=== PATIENT | female | born 1980 | race Caucasian/White ===

== ENCOUNTER 2016-03-15 14:38 | Emergency (ER) | payer SELFPAY ==
--- NOTE | 2016-03-15 15:03 | ER Document Report ---
ED Medical Screen (RME) - General Stated Complaint: SUICIDAL IDEATION,ALCOHOL DETOX Time seen by provider: 15:00 Mode of Arrival: Ambulatory Information source: Patient Notes: 35-year-old daily alcoholic for 20 years is having thoughts of suicide due to depression. She feels shaky and will go into DTs she states. Also she occasionally uses IV heroin, last IV injection was 2 weeks ago. Last alcohol consumption was last night. TRAVEL OUTSIDE OF THE [place] IN LAST 30 DAYS: No - Related Data Allergies/Adverse Reactions: No Known Allergies Allergy (Verified 03/15/16 14:59) Past Medical History - Immunizations Hx Diphtheria, Pertussis, Tetanus Vaccination: Yes Physical Exam - Vital signs Vitals: Temp Pulse Resp BP Pulse Ox 98.0 F 77 16 115/64 96 03/15/16 14:56 03/15/16 14:56 03/15/16 14:56 03/15/16 14:56 03/15/16 14:56 Course - Vital Signs Vital signs: Temp Pulse Resp BP Pulse Ox 98.0 F 77 16 115/64 96 03/15/16 14:56 03/15/16 14:56 03/15/16 14:56 03/15/16 14:56 03/15/16 14:56
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
[2016-03-15 15:42] LABS: ABSOLUTE BASOPHILS # (AUTO) 0.1 10^3/uL (0.0-0.2); ABSOLUTE EOSINOPHILS # (AUTO) 0.1 10^3/uL (0.0-0.6); ABSOLUTE LYMPHOCYTES (AUTO) 3.1 10^3/uL (0.5-4.7); BASOPHILS % (AUTO) 0.7 % (0-2); EOSINOPHILS % (AUTO) 0.8 % (0-6); HEMATOCRIT 46.4 % (36.0-47.0); HEMOGLOBIN 15.7 g/dL (12.0-15.5); HGB HCT DIFFERENCE 0.7; LYMPHOCYTES % (AUTO) 18.8 % (13-45); MEAN CORPUSCULAR HEMOGLOBIN 31.2 pg (27.0-33.4); MEAN CORPUSCULAR HGB CONC 33.7 g/dL (32.0-36.0); MEAN CORPUSCULAR VOLUME 93 fl (80-97); MONOCYTES % (AUTO) 6.1 % (3-13); RED BLOOD COUNT 5.01 10^6/uL (3.72-5.28); RED CELL DISTRIBUTION WIDTH 13.4 % (11.5-14.0); SEGMENTED NEUTROPHILS % (AUTO) 73.6 % (42-78); WHITE BLOOD COUNT 16.3 10^3/uL (4.0-10.5)
[2016-03-15 16:02] LABS: ALANINE AMINOTRANSFERASE 22 U/L (9-52); ALBUMIN 4.4 g/dL (3.5-5.0); ALKALINE PHOSPHATASE 107 U/L (38-126); ANION GAP 12 (5-19); ASPARTATE AMINO TRANSFERASE 18 U/L (14-36); BILIRUBIN,TOTAL 0.3 mg/dL (0.2-1.3); BLOOD UREA NITROGEN 7 mg/dL (7-20); CALCIUM 9.8 mg/dL (8.4-10.2); CARBON DIOXIDE 28 mmol/L (22-30); CHLORIDE 102 mmol/L (98-107); GLUCOSE 97 mg/dL (75-110); SODIUM 141.9 mmol/L (137-145); TOTAL PROTEIN 7.3 g/dL (6.3-8.2)
[2016-03-15 16:04] LABS: APPEARANCE,URINE SLIGHTLY-CLOUDY; BILIRUBIN,URINE NEGATIVE (NEGATIVE); GLUCOSE, URINE NEGATIVE (NEGATIVE); KETONES,URINE NEGATIVE (NEGATIVE); LEUKOCYTE ESTERASE,URINE LARGE (NEGATIVE); NITRITE,URINE NEGATIVE (NEGATIVE); PROTEIN,URINE NEGATIVE (NEGATIVE); URINE SPECIFIC GRAVITY 1.015; UROBILINOGEN,URINE NEGATIVE mg/dL (<2.0)
[2016-03-15 16:06] LABS: ALCOHOL < 10 mg/dL (NONE DETECTED)
--- NOTE | 2016-03-15 17:00 | PSYCHOLOGICAL NOTE ---
Psych Note - Psych Note Psych Note: Patient states that she has thought about suicide such as taking pills or cutting her wrists however does not indicate a solid plan. Patient states these thoughts stem from her desire to become sober and how she's had difficulties doing this. She continued to disclose that she wants assistance with her substance abuse. She continued to disclose that she does feel there is a part of her problem that is mental health. However she is unable to identify if mental health issues was before or after start of substance abuse. Patient states she did not know local resources and would like assistance. Patient is alert and orientated to person place time and circumstance. Mood is euthymic with congruent affect. Patient denies homicidal ideation and endorses suicidal ideation with no plan or means or intent. Patient denies auditory and visual hallucinations; no delusions are noted. Thought process is logical, organized and linear. Conversational speech within normal rate, tone, porosity. Eye contact was well maintained. Intellectual abilities appear to be within normal range. Attention and concentration appear to be good. Insight , judgment, impulse control are fair. 292.9 (F 19.99) unspecified Substance Related Disorder- in current acute setting (ED), unable to provide more accurate diagnosis with limited history provided. Impression\plan: Patient is psychiatrically cleared for discharge. Patient denies homicidal ideation while endorsing suicidal ideation does not have a plan means nor intent. Patient states she has substance abuse issues and would like assistance in finding local resources. Patient shows [facility] as outpatient provider. Patient has appointment for 03/22/2016 at 10 AM. Patient can receive both substance abuse services and mental health services with this provider. Attending physician is in agreement with recommendations and disposition.
[2016-03-15 17:41] VITALS: BP 108/64
--- NOTE | 2016-03-15 23:03 | EKG REPORT ---
SEVERITY:- NORMAL ECG - SINUS RHYTHM : Confirmed by: Smooth Aaron 15-Mar-2016 23:02:32
[2016-03-16 16:57] LABS: URINE BARBITURATES SCREEN NEGATIVE; URINE METHADONE SCREEN NEGATIVE; URINE PHENCYCLIDINE SCREEN NEGATIVE
== END 2016-03-15 17:41 | disposition home or self-care (01) ==
LOC: ER 14:38
DX: R45.851 Suicidal ideations (principal); Z79.899 Other long term (current) drug therapy; F17.210 Nicotine dependence, cigarettes, uncomplicated
CPT/HCPCS: 36415; 80053; 80307; 81001; 85025; 93005; 93010; 99285

== ENCOUNTER 2016-05-07 18:48 | Emergency (ER) | payer SELFPAY ==
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
[2016-05-07 19:44] LABS: APPEARANCE,URINE SLIGHTLY-CLOUDY; BILIRUBIN,URINE NEGATIVE (NEGATIVE); GLUCOSE, URINE NEGATIVE (NEGATIVE); KETONES,URINE NEGATIVE (NEGATIVE); LEUKOCYTE ESTERASE,URINE NEGATIVE (NEGATIVE); NITRITE,URINE NEGATIVE (NEGATIVE); PROTEIN,URINE 30 mg/dL (NEGATIVE); URINE SPECIFIC GRAVITY 1.019; UROBILINOGEN,URINE NEGATIVE mg/dL (<2.0)
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
[2016-05-07] MEDS ORDERED: ONDANSETRON 4 MG TAB.RAPDIS PO ONE (20:40)
[2016-05-07] MEDS ORDERED: LEVONORGESTREL 1.5 MG TABLET (1 TAB/ER-USE) PO ONE (20:40)
[2016-05-07 21:06] LABS: CHLAM PCR NOT DETECTED (NOT DETECT)
[2016-05-07] MEDS ORDERED: METRONIDAZOLE 500 MG TABLET PO ONE (22:55)
[2016-05-07 23:08] VITALS: BP 103/61
== END 2016-05-07 23:13 | disposition home or self-care (01) ==
LOC: ER 18:48
DX: T76.21XA Adult sexual abuse, suspected, initial encounter (principal); F17.210 Nicotine dependence, cigarettes, uncomplicated
CPT/HCPCS: 99285; 81025; 81001; 87491; 87591; A9270; S0119

== ENCOUNTER 2016-10-13 18:04 | Emergency (ER) | payer SELFPAY ==
[2016-10-13 18:27] VITALS: BP 111/60
--- NOTE | 2016-10-13 18:38 | ER Document Report ---
HPI - HPI Patient complains to provider of: dental pain Context: 36 yo female c/o toothache to right lower molar x 3 days Associated Symptoms: None Exacerbated by: Denies Relieved by: Denies Similar symptoms previously: Yes Recently seen / treated by doctor: No - ROS Systems Reviewed and Negative: Yes All other systems reviewed and negative - CARDIOVASCULAR Cardiovascular: DENIES: Chest pain - REPRODUCTIVE Reproductive: DENIES: : Past Medical History - General Information source: Patient - Social History Smoking Status: Current Every Day Smoker Chew tobacco use (# tins/day): No Frequency of alcohol use: None Drug Abuse: None Lives with: Family Family History: Reviewed & Not Pertinent Renal/ Medical History: Denies: Hx Peritoneal Dialysis Psychiatric Medical History: Reports: Hx Anxiety, Hx Depression - Immunizations Hx Diphtheria, Pertussis, Tetanus Vaccination: Yes Vertical Provider Document - CONSTITUTIONAL Agree With Documented VS: Yes Exam Limitations: No Limitations - INFECTION CONTROL TRAVEL OUTSIDE OF THE [place] IN LAST 30 DAYS: No - HEENT HEENT: Atraumatic, PERRLA Mouth Diagram: 1 - pain, extensive decay - NECK Neck: Normal Inspection, Supple - RESPIRATORY Respiratory: Breath Sounds Normal O2 Sat by Pulse Oximetry: 100 - CARDIOVASCULAR Cardiovascular: Regular Rate, Regular Rhythm - MUSCULOSKELETAL/EXTREMETIES Musculoskeletal/Extremeties: MAEW - NEURO Level of Consciousness: Awake, Alert, Appropriate - DERM Integumentary: Warm, Dry, No Rash Course - Vital Signs Vital signs: Temp Pulse Resp BP Pulse Ox 98.1 F 63 16 111/60 100 10/13/16 18:25 10/13/16 18:25 10/13/16 18:25 10/13/16 18:25 10/13/16 18:25 Discharge - Discharge Clinical Impression: Pain, dental Condition: Stable Disposition: HOME, SELF-CARE Instructions: [facility], Penicillin V K ([facility]), Toothache ([facility]), Ultram ([facility]), Ibuprofen (General) ([facility]) Additional Instructions: take medications as prescribed follow up with your dentist for further evaluation Prescriptions: Ibuprofen [Motrin 800 Mg Tablet] 800 mg PO Q6H #20 tablet Penicillin V Potassium 500 mg PO BID #20 tablet Tramadol HCl [Ultram 50 mg Tablet] 50 mg PO ASDIR PRN #20 tablet PRN Reason:
[2016-10-13] MEDS ORDERED: PENICILLIN V POTASSIUM 500 MG TABLET PO ONE (18:51)
[2016-10-13] MEDS ORDERED: LIDOCAINE 2% VISCOUS SOLN 20 ML UDCUP PO ONE (18:51)
== END 2016-10-13 19:23 | disposition home or self-care (01) ==
LOC: ER 18:04
DX: K02.9 Dental caries, unspecified (principal); K08.89 Other specified disorders of teeth and supporting structures; F17.200 Nicotine dependence, unspecified, uncomplicated
CPT/HCPCS: 99282; J3490

== ENCOUNTER 2016-12-11 12:27 | Emergency (ER) | payer SELFPAY ==
[2016-12-11 12:36] VITALS: BP 100/62
[2016-12-11] MEDS ORDERED: ONDANSETRON 4 MG TAB.RAPDIS PO ONE (14:27)
[2016-12-11] MEDS ORDERED: METRONIDAZOLE 500 MG TABLET PO ONE (14:27)
[2016-12-11] MEDS ORDERED: CEFTRIAXONE INJ 250 MG VIAL IM ONE (14:27)
[2016-12-11] MEDS ORDERED: LIDOCAINE 1% INJ-PF (10 MG/ML) 30 ML SDV INJ ONE (14:27)
[2016-12-11] MEDS ORDERED: AZITHROMYCIN 1 GM SUSP PACKET PO ONE (14:27)
--- NOTE | 2016-12-11 14:36 | ER Document Report ---
ED GI/ - General Chief Complaint: STD Exposure Stated Complaint: POSSIBLE STD Time Seen by Provider: 12/11/16 12:46 Notes: Patient is a 36-year-old female presents emergency department to be screened for STDs. Patient states that one week ago she had sexual intercourse with a new partner. She states that they were using a condom but it broke. She states that for the past 2 days she has had vaginal discharge and vaginal irritation. She states last night she had intercourse with a different partner using a condom and she had pain. Otherwise she denies any pelvic pain, nausea, vomiting. States she is currently on her menstrual period at this time declining a test. TRAVEL OUTSIDE OF THE [place] IN LAST 30 DAYS: No - Related Data Allergies/Adverse Reactions: No Known Allergies Allergy (Verified 12/11/16 12:31) Past Medical History - General Last Menstrual Period: now - Social History Smoking Status: Current Every Day Smoker Chew tobacco use (# tins/day): No Frequency of alcohol use: None Drug Abuse: None Family History: Reviewed & Not Pertinent Renal/ Medical History: Denies: Hx Peritoneal Dialysis Psychiatric Medical History: Reports: Hx Anxiety, Hx Depression Surgical Hx: Negative - Immunizations Hx Diphtheria, Pertussis, Tetanus Vaccination: Yes Review of Systems - Review of Systems Constitutional: No symptoms reported Female Genitourinary: See HPI -: Yes All other systems reviewed and negative Physical Exam - Vital signs Vitals: Temp Pulse Resp BP Pulse Ox 97.6 F 79 18 100/62 99 12/11/16 12:35 12/11/16 12:35 12/11/16 12:35 12/11/16 12:35 12/11/16 12:35 - Notes Notes: PHYSICAL EXAM GENERAL: Alert, interacts well. LUNGS: Clear to auscultation bilaterally, no wheezes, rales, or rhonchi. No respiratory distress. HEART: Regular rate and rhythm. No murmurs, gallops, or rubs. ABDOMEN: Soft, nondistended, nontender. No guarding, rebound, or rigidity.. Bowel sounds present in all 4 quadrants. FEMALE : Normal external exam. No evidence of lesions, lacerations, bruising or vesicles. Speculum exam normal cervix closed. No evidence of vaginal discharge with odor. No evidence of lesions. No vaginal bleeding. Bimanual exam normal no cervical motion tenderness. No adnexal mass or adnexal tenderness. EXTREMITIES: Moves all 4 extremities spontaneously. No edema, radial and dorsalis pedis pulses 2/4 bilaterally. No cyanosis. NEUROLOGICAL: Alert and oriented x4. Normal speech. PSYCH: Normal affect, normal mood. SKIN: Warm, dry, normal turgor. No rashes or lesions noted. Course - Re-evaluation Re-evalutation: 12/11/16 14:55 Patient is a 36-year-old female who is hemodynamic stable, no acute distress afebrile. Wet prep was positive for trichomonas negative for yeast or BV. Chlamydia and gonorrhea are pending. Patient requesting treatment for all 3. Discussed with patient will call with results this afternoon if she tests positive for chlamydia and gonorrhea. RPR is pending. Otherwise low clinical suspicion for any pelvic inflammatory disease or concerns for sepsis. Vital signs are stable and patient able to be discharged. Discussed with her to abstain from intercourse and communicate with her partners. Patient agrees with plan - Vital Signs Vital signs: Temp Pulse Resp BP Pulse Ox 97.6 F 79 18 100/62 99 12/11/16 12:35 12/11/16 12:35 12/11/16 12:35 12/11/16 12:35 12/11/16 12:35 Discharge - Discharge Clinical Impression: STD (female) Condition: Good Disposition: HOME, SELF-CARE Additional Instructions: You tested positive for trichomonas, this is a sexually transmitted disease (STD ). PLease be sure to communicate with your partner/s that they also require treatment. Please abstain from intercourse for one week. I will call you with your chlamydia/gonorrhea results only if they are positive. If you do not receive a call, they were negative. You hace been treated today for chlamydia, gonorrhea, trichomonas. Forms: Return to Work
[2016-12-11 15:39] LABS: CHLAM PCR NOT DETECTED (NOT DETECT)
== END 2016-12-11 14:46 | disposition home or self-care (01) ==
LOC: ER 12:27
DX: A59.00 Urogenital trichomoniasis, unspecified (principal); Z20.2 Contact with and (suspected) exposure to infections with a predominantly sexual mode of transmission; F17.200 Nicotine dependence, unspecified, uncomplicated
CPT/HCPCS: 99283; 96372; 36415; 87210; 86592; 87491; 87591; S0119; J3490; Q0144; J0696

== ENCOUNTER 2017-06-05 09:09 | Emergency (ER) | payer SELFPAY ==
[2017-06-05 09:24] VITALS: BP 104/67
[2017-06-05] MEDS ORDERED: CLINDAMYCIN HCL 150 MG CAPSULE PO ONE (09:24)
[2017-06-05] MEDS ORDERED: LIDOCAINE 2% VISCOUS SOLN 20 ML UDCUP PO ONE (09:24)
--- NOTE | 2017-06-05 09:36 | ER Document Report ---
ED Oral Problem - General Chief Complaint: Toothache Stated Complaint: TOOTH PAIN Time Seen by Provider: 06/05/17 09:24 Mode of Arrival: Ambulatory Information source: Patient Notes: 36-year-old female presents to ED for possible tooth abscess to the right upper jaw. She states any bleeding or drainage the area. She has had symptoms for the last night worse today. She is actually had symptoms for a long time this is just gotten worse. She states she has to schedule an appointment with a care in community clinic as she cannot afford a dentist. She is able to speak in complete full sentences. She is in no acute distress at this time. She states she is used the lidocaine in the past and that has helped. She walks with a even steady gait TRAVEL OUTSIDE OF THE [place] IN LAST 30 DAYS: No - HPI Patient complains to provider of: Swelling of jaw, Toothache Onset: This morning Onset: Gradual Quality of pain: Sharp, Throbbing Severity: Severe Pain Level: 5 Associated symptoms: Dental decay, Toothache Worsened by: Nothing Relieved by: Nothing Similar symptoms previously: Yes Recently seen / treated by doctor/dentist: Yes - Related Data Allergies/Adverse Reactions: No Known Allergies Allergy (Verified 12/11/16 12:31) Past Medical History - General Information source: Patient - Social History Smoking Status: Current Every Day Smoker Cigarette use (# per day): Yes - ppd Chew tobacco use (# tins/day): No Smoking Education Provided: Yes - 4 min Frequency of alcohol use: Occasional Drug Abuse: None Occupation: cleaning Lives with: Friend Family History: CAD, Hyperlipidemia, Hypertension, Malignancy. denies: Arthritis, COPD, CVA, DM, Thyroid Disfunction Patient has suicidal ideation: No Patient has homicidal ideation: No - Past Medical History Cardiac Medical History: Reports: None Pulmonary Medical History: Reports: None EENT Medical History: Reports: None Neurological Medical History: Reports: None Endocrine Medical History: Reports: None Renal/ Medical History: Reports: None Malignancy Medical History: Reports: None GI Medical History: Reports: None Musculoskeltal Medical History: Reports Hx Musculoskeletal Trauma Skin Medical History: Reports None Psychiatric Medical History: Reports: Hx Anxiety, Hx Depression Traumatic Medical History: Reports: Hx Fractures - arm Infectious Medical History: Reports: None Surgical Hx: Negative Past Surgical History: Reports: None - Immunizations Hx Diphtheria, Pertussis, Tetanus Vaccination: Yes Review of Systems - Review of Systems Constitutional: No symptoms reported EENT: Mouth pain, Dental problem Cardiovascular: No symptoms reported Respiratory: No symptoms reported Gastrointestinal: No symptoms reported Genitourinary: No symptoms reported Female Genitourinary: No symptoms reported Musculoskeletal: No symptoms reported Skin: No symptoms reported Hematologic/Lymphatic: No symptoms reported Neurological/Psychological: No symptoms reported -: Yes All other systems reviewed and negative Physical Exam - Vital signs Vitals: Pulse Resp BP Pulse Ox 65 16 104/67 100 06/05/17 09:19 06/05/17 09:19 06/05/17 09:19 06/05/17 09:19 Interpretation: Normal - General General appearance: Appears well, Alert - HEENT Head: Normocephalic, Atraumatic Eyes: Normal Pupils: PERRL Ears: Normal External canal: Normal Tympanic membrane: Normal Sinus: Normal Nasal: Normal Mouth/Lips: Caries - Holes in the teeth with redness erythematous inflamed gums Mucous membranes: Normal Pharynx: Normal Neck: Normal - Respiratory Respiratory status: No respiratory distress Chest status: Nontender Breath sounds: Normal Chest palpation: Normal - Cardiovascular Rhythm: Regular Heart sounds: Normal auscultation Murmur: No - Abdominal Inspection: Normal Distension: No distension Bowel sounds: Normal Tenderness: Nontender Organomegaly: No organomegaly - Back Back: Normal, Nontender - Extremities General upper extremity: Normal inspection, Nontender, Normal color, Normal ROM , Normal temperature General lower extremity: Normal inspection, Nontender, Normal color, Normal ROM , Normal temperature, Normal weight bearing. No: Toñito's sign - Neurological Neuro grossly intact: Yes Cognition: Normal Orientation: AAOx4 Eldred Coma Scale Eye Opening: Spontaneous Todd Coma Scale Verbal: Oriented Eldred Coma Scale Motor: Obeys Commands Eldred Coma Scale Total: 15 Speech: Normal Motor strength normal: LUE, RUE, LLE, RLE Sensory: Normal - Psychological Associated symptoms: Normal affect, Normal mood - Skin Skin Temperature: Warm Skin Moisture: Dry Skin Color: Normal Course - Re-evaluation Re-evalutation: 06/05/17 09:43 Patient treated with clindamycin and viscous lidocaine for her dental pain. Patient discharged home with prescription for clindamycin and a sent home with a syringe of viscous lidocaine. - Vital Signs Vital signs: Temp Pulse Resp BP Pulse Ox 65 16 104/67 100 06/05/17 09:19 06/05/17 09:19 06/05/17 09:19 06/05/17 09:19 Discharge - Discharge Clinical Impression: Pain due to dental caries Condition: Stable Disposition: HOME, SELF-CARE Additional Instructions: TOOTHACHE: Your pain is due to dental decay. The tooth must be repaired in order for you to feel better. You will, therefore, be referred to a dentist. We do not have dentists on the staff at [facility]. Severe swelling or drainage around a tooth usually means a dental abscess. This also requires evaluation and treatment by the dentist, but antibiotics may be prescribed while awaiting dental treatment. You should be rechecked immediately if you develop major swelling of the face, increasing pain, a lump in the jaw or gums, headache, difficulty swallowing, or fever. You will be given a syringe with viscous lidocaine that you can buy a small amount to your painful teeth for couple hours to help you get through to you can get into your dentist. Take Tylenol or Motrin with the lidocaine. The lidocaine does numb you to use and the surrounding gum. Be careful it can also numb your tongue. CLINDAMYCIN: You have been given a prescription for the antibiotic clindamycin. It is often prescribed for infections in the mouth, such as dental infections or abscesses, and for skin infections due to MRSA. It's important that you take all the medication, unless instructed otherwise by your physician. Failure to complete the entire course can result in relapse of your condition. Common side effects of antibiotics include nausea, intestinal cramping, or diarrhea. Women may develop vaginal yeast infections, and babies can get yeast (thrush) in the mouth following the use of antibiotics. Contact your physician if you develop significant side effects from this medication. Allergy to this antibiotic can result in hives, wheezing, faintness, or itching. If symptoms of allergy occur, stop the medication and call the doctor. FOLLOW-UP CARE: You have been referred for follow-up care to the dentists listed below. Call the dentists office for an appointment as you were instructed or within the next two days. If you experience worsening or a significant change in your symptoms, notify the physician immediately or return to the Emergency Department at any time for re-evaluation. [facility] [address] [phone] [facility] [address] [place] [address] [facility] [address] [facility] [address] [facility] ([facility]th) [facility] Department [facility] [address] [email or web address] [address] [place] [address] Tuesday- 8:00am to 5:00 pm Will see patients from other [facility]. Charges based on income and family size and accepts Medicare, Medicaid, and Insurances Will pull molars [facility] [address] Hours of Operation 8:00 am - 4:30 pm weekdays The following dental offices accept Medicaid: [facility] [address]. [address]. [address] Dr. Tolbert Dr. Wesley Napoleon Daniel, [place], and [place] oral surgery Dr. Doll ([place]) Dr. Spencer ([place]) [facility] Drs. Meza ([place]) Dr. Crump ([place]) [facility] Dr. Orozco ([place]) Drs. Prasad and ([place]) Medicaid Care Line Prescriptions: Clindamycin HCl 300 mg PO TID #30 capsule
== END 2017-06-05 09:46 | disposition home or self-care (01) ==
LOC: ER 09:09
DX: K02.9 Dental caries, unspecified (principal); F17.210 Nicotine dependence, cigarettes, uncomplicated
CPT/HCPCS: 99282; 99151; J3490

== ENCOUNTER 2017-07-29 07:11 | Emergency (ER) | payer SELFPAY ==
[2017-07-29 07:18] VITALS: BP 118/70
[2017-07-29] MEDS ORDERED: LIDOCAINE 2% VISCOUS SOLN 20 ML UDCUP PO ONE (07:30)
--- NOTE | 2017-07-29 07:37 | ER Document Report ---
HPI - HPI Pain Level: 4 Notes: Patient is a 37-year-old female with no significant past medical history aside from chronic poor dentition and IV drug use who presents to the ED complaining of right upper molar pain to #32 days, but intermittently over the last 2 years. Patient states that she has had chronic dental pain and has had teeth removed through the caring [facility]. Patient states that she has not noticed any obvious abscess or discharge. She still eating and drinking without difficulties. She is urinating normally and having normal bowel movements. Denies any drug allergies. Patient states that she is wondering if she should have a random blood draw to look for hepatitis and HIV she has been IV drug using. She is otherwise been asymptomatic. Denies any headache, fever, head injury, neck pain, URI, sore throat, chest pain, palpitations, syncope, cough, shortness of breath, wheeze, dyspnea, abdominal pain, nausea/vomiting/diarrhea, urinary retention, dysuria, hematuria, or rash. - ROS Systems Reviewed and Negative: Yes All other systems reviewed and negative - REPRODUCTIVE Reproductive: DENIES: : Past Medical History - Social History Smoking Status: Current Every Day Smoker Family History: CAD, Hyperlipidemia, Hypertension, Malignancy. denies: Arthritis, COPD, CVA, DM, Thyroid Disfunction Renal/ Medical History: Denies: Hx Peritoneal Dialysis Musculoskeltal Medical History: Reports Hx Musculoskeletal Trauma Psychiatric Medical History: Reports: Hx Anxiety, Hx Depression Traumatic Medical History: Reports: Hx Fractures - arm - Immunizations Hx Diphtheria, Pertussis, Tetanus Vaccination: Yes Vertical Provider Document - CONSTITUTIONAL Agree With Documented VS: Yes Notes: PHYSICAL EXAMINATION: GENERAL: Well-appearing, well-nourished and in no acute distress. HEAD: Atraumatic, normocephalic. EYES: Pupils equal round and reactive to light, extraocular movements intact, sclera anicteric, conjunctiva are normal. ENT: EAC clear b/l. TM's intact b/l without erythema, fluid, or perforation. Nares patent and without discharge. oropharynx clear without exudates. No tonsilar hypertrophy or erythema. Moist mucous membranes. No sinus tenderness. Uvula midline. No palatine shift. No tongue protrusion. No respiratory compromise. Mouth: Poor dentition. + moderate decay and mild gingivitis. No obvious abscess or discharge noted. No facial swelling. + tenderness to tooth #3. NECK: Normal range of motion, supple without lymphadenopathy. No rigidity/ meningismus. LUNGS: Breath sounds clear to auscultation bilaterally and equal. No wheezes rales or rhonchi. HEART: Regular rate and rhythm without murmurs, rubs, gallops. NEUROLOGICAL: Normal speech, normal gait. PSYCH: Normal mood, normal affect. SKIN: Warm, Dry, normal turgor, no rashes or lesions noted. - INFECTION CONTROL TRAVEL OUTSIDE OF THE [place] IN LAST 30 DAYS: No Course - Re-evaluation Re-evalutation: 07/29/17 07:35 Patient is an afebrile, well-hydrated, 37-year-old female who presents to the ED with dental pain, suspect nerve root etiology versus infection. Vitals are acceptable. PE is otherwise unremarkable. No I&D, labs, or imaging warranted at this time based on H&P. Viscous lidocaine dispensed today. I will send her home with a prescription for penicillin. Low suspicion for any meningitis, sepsis, peritonsillar/pharyngeal abscess, respiratory compromise, Stanislav's, temporal arteritis, or other emergent systemic condition at this time. Patient is aware this condition can change from initial presentation and she needs to monitor symptoms closely. Conservative measures otherwise for symptoms. Call to schedule an appointment with a dentist for further evaluation and management. Recheck with your PCM this week as well. Return to the ED with any worsening/concerning symptoms otherwise as reviewed in discharge. Patient is in agreement. - Vital Signs Vital signs: Temp Pulse Resp BP Pulse Ox 97.7 F 63 14 118/70 99 07/29/17 07:16 07/29/17 07:16 07/29/17 07:16 07/29/17 07:16 07/29/17 07:16 Discharge - Discharge Clinical Impression: Pain, dental Condition: Stable Disposition: HOME, SELF-CARE Instructions: Penicillin V K ([facility]), Toothache ([facility]) Additional Instructions: [place] and floss twice daily Maintain fluid intake Take antibiotics as directed Mouthwash, salt water gargles, peroxide rinse as needed Tylenol/ibuprofen as needed Recheck with PCM this week Call today/tomorrow and schedule an appointment with your dentist for further evaluation Return to the ED with any worsening symptoms and/or development of fever, headache, facial swelling, swelling of lips/tongue/throat, trouble swallowing, drooling, hoarseness, neck pain/stiffness, chest pain, palpitations, syncope, shortness of breath, trouble breathing, abdominal pain, n/v/d, numbness/tingling , or other worsening symptoms that are concerning to you. Prescriptions: Penicillin V Potassium [Penicillin Vk 250 mg Tablet] 500 mg PO BID #40 tablet Forms: Smoking Cessation Education Referrals: [facility] [Provider Group] - Follow up in 1 week
== END 2017-07-29 08:00 | disposition home or self-care (01) ==
LOC: ER 07:11
DX: K08.9 Disorder of teeth and supporting structures, unspecified (principal); F17.200 Nicotine dependence, unspecified, uncomplicated
CPT/HCPCS: 99282; J3490

== ENCOUNTER 2017-10-04 04:24 | Emergency (ER) | payer SELFPAY ==
[2017-10-04] MEDS ORDERED: KETOROLAC TROMETHAMINE INJ/PF 30 MG/1 ML SDV IV ONE (05:03)
--- NOTE | 2017-10-04 05:05 | ER Document Report ---
ED GI/ - General Chief Complaint: Abdominal Pain Stated Complaint: ABDOMINAL PAIN Time Seen by Provider: 10/04/17 04:48 Notes: Patient is a 37-year-old female comes emergency department for chief complaint of lower abdominal pain since yesterday, pain is worse on the right compared to the left, pain is sharp. She states she had abnormally long amount of vaginal bleeding, bleeding finished a couple of days ago, she does have some dysuria and also some vaginal discharge. She denies fever chills, nausea vomiting, flank pain. She denies any surgeries, daily medications, or medical history. TRAVEL OUTSIDE OF THE [place] IN LAST 30 DAYS: No - Related Data Allergies/Adverse Reactions: No Known Allergies Allergy (Verified 12/11/16 12:31) Past Medical History - General Information source: Patient - Social History Smoking Status: Current Some Day Smoker Frequency of alcohol use: Social Lives with: Family Family History: CAD, Hyperlipidemia, Hypertension, Malignancy. denies: Arthritis, COPD, CVA, DM, Thyroid Disfunction Patient has suicidal ideation: No Patient has homicidal ideation: No Renal/ Medical History: Denies: Hx Peritoneal Dialysis Musculoskeletal Medical History: Reports Hx Musculoskeletal Trauma Psychiatric Medical History: Reports: Hx Anxiety, Hx Depression Traumatic Medical History: Reports: Hx Fractures - arm Past Surgical History: Reports: Hx Oral Surgery - Immunizations Hx Diphtheria, Pertussis, Tetanus Vaccination: Yes Review of Systems - Review of Systems Constitutional: No symptoms reported EENT: No symptoms reported Cardiovascular: No symptoms reported Respiratory: No symptoms reported Gastrointestinal: See HPI Genitourinary: See HPI Female Genitourinary: See HPI Musculoskeletal: No symptoms reported Skin: No symptoms reported Hematologic/Lymphatic: No symptoms reported Neurological/Psychological: No symptoms reported Physical Exam - Vital signs Vitals: Temp Pulse Resp BP Pulse Ox 98.3 F 77 20 101/69 96 10/04/17 04:27 10/04/17 04:27 10/04/17 04:27 10/04/17 04:27 10/04/17 04:27 - Notes Notes: GENERAL: Patient is somewhat disheveled in appearance, however she does not appear to be in any distress. Alert and conversational HEAD: Normocephalic, atraumatic. EYES: Pupils equal, round, and reactive to light. Extraocular movements intact. ENT: Oral mucosa moist, tongue midline. [Nares patent, no nasal septal hematoma , TM's intact.] NECK: Full range of motion. Supple. Trachea midline. LUNGS: Clear to auscultation bilaterally, no wheezes, rales, or rhonchi. No respiratory distress. HEART: Regular rate and rhythm. No murmur ABDOMEN: Soft abdomen generally, no guarding or rigidity, no rebound tenderness , there is mild minimal tenderness over the pelvic area and generally and bilaterally. GENITOURINARY: Minimal discharge, no notable lesions, no rash noted externally, no cervical motion tenderness. Exam performed with Fartun GOMES at bedside. EXTREMITIES: Moves all 4 extremities spontaneously. No edema, normal radial and dorsalis pedis pulses bilaterally. No cyanosis. BACK: no cervical, thoracic, lumbar midline tenderness. No saddle anesthesia, normal distal neurovascular exam. NEUROLOGICAL: Alert and oriented x3. Normal speech. [cranial nerves II through XII grossly intact]. PSYCH: Normal affect, normal mood. SKIN: Warm, dry, normal turgor. No rashes or lesions noted. Course - Re-evaluation Re-evalutation: Patient's abdomen is actually very soft and benign, she is minimal pelvic tenderness, she has small amount of discharge, no cervical motion tenderness. Urinalysis shows dehydration but no overt infection, hCG is negative. CBC is unremarkable with no anemia or leukocytosis. Vital signs are unremarkable. Patient was given IV fluids, Toradol, afterwards she became comfortable and fell asleep. No complaints on reevaluation. Wet mount showing 4+ bacteria, some white blood cells, otherwise unremarkable. Gonorrhea and Chlamydia still pending. Low suspicion of ovarian torsion, acute appendicitis, or even PID with sepsis based on her evaluation and exam. Discussed with patient, will treat with Flagyl, given azithromycin and Rocephin here, discussed follow-up and return precautions, patient states understanding and agreement. - Vital Signs Vital signs: Temp Pulse Resp BP Pulse Ox 98.3 F 77 20 101/69 96 10/04/17 04:27 10/04/17 04:27 10/04/17 04:27 10/04/17 04:27 10/04/17 04:27 - Laboratory Result Diagrams: 10/04/17 05:18 10/04/17 05:18 Laboratory results interpreted by me: 10/04/17 10/04/17 05:05 05:18 RDW 14.3 H Lymphocytes % 47.8 H Urine Ketones TRACE H Urine Urobilinogen 2.0 H Urine Ascorbic Acid 40 H Discharge - Discharge Clinical Impression: Pelvic pain, Dysuria Abdominal pain Qualifiers: Abdominal location: lower abdomen, unspecified Qualified Code(s): R10.30 - Lower abdominal pain, unspecified Condition: Stable Disposition: HOME, SELF-CARE Additional Instructions: Your workup shows some dehydration, pelvic infection, otherwise does not show any concerning finding. Take Flagyl as prescribed, take ketorolac if needed for pain, drink plenty of fluids and rest. Follow-up with primary care. Return if you worsen including fever, vomiting, increased pain, or any other concerning or worsening symptoms. Prescriptions: Ketorolac Tromethamine [Toradol 10 mg Tablet] 10 mg PO Q8HP PRN #24 tablet PRN Reason: Metronidazole [Flagyl 500 mg Tablet] 500 mg PO BID #14 tablet Forms: Return to Work
[2017-10-04 05:28] LABS: APPEARANCE,URINE CLEAR; BILIRUBIN,URINE NEGATIVE (NEGATIVE); COLOR,URINE YELLOW; GLUCOSE, URINE NEGATIVE (NEGATIVE); KETONES,URINE TRACE mg/dL (NEGATIVE); LEUKOCYTE ESTERASE,URINE NEGATIVE (NEGATIVE); NITRITE,URINE NEGATIVE (NEGATIVE); PROTEIN,URINE NEGATIVE (NEGATIVE); URINE SPECIFIC GRAVITY 1.023
[2017-10-04 05:40] LABS: BACTERIA (WET MOUNT) 4+ BACTERIA SEEN; EPITHELIALS (WET MOUNT) 3+ EPITHELIALS SEEN; RBCS (WET MOUNT) RARE RBCS SEEN; T.VAGINALIS (WET MOUNT) NO TRICHOMONAS SEEN; WBCS (WET MOUNT) 1+ WBCS SEEN; YEAST (WET MOUNT) NO YEAST SEEN
[2017-10-04 05:45] LABS: ABSOLUTE BASOPHILS # (AUTO) 0.1 10^3/uL (0.0-0.2); ABSOLUTE EOSINOPHILS # (AUTO) 0.2 10^3/uL (0.0-0.6); ABSOLUTE LYMPHOCYTES (AUTO) 3.6 10^3/uL (0.5-4.7); ABSOLUTE MONOCYTES (AUTO) 0.5 10^3/uL (0.1-1.4); ABSOLUTE NEUT (AUTO) 3.2 10^3/uL (1.7-8.2); BASOPHILS % (AUTO) 0.8 % (0-2); HEMATOCRIT 38.2 % (36.0-47.0); HEMOGLOBIN 13.3 g/dL (12.0-15.5); LYMPHOCYTES % (AUTO) 47.8 % (13-45); MEAN CORPUSCULAR HEMOGLOBIN 30.9 pg (27.0-33.4); MEAN CORPUSCULAR HGB CONC 34.7 g/dL (32.0-36.0); MEAN CORPUSCULAR VOLUME 89 fl (80-97); MONOCYTES % (AUTO) 7.1 % (3-13); PLATELET COUNT 232 10^3/uL (150-450); RED BLOOD COUNT 4.29 10^6/uL (3.72-5.28); RED CELL DISTRIBUTION WIDTH 14.3 % (11.5-14.0); SEGMENTED NEUTROPHILS % (AUTO) 42.3 % (42-78); TOTAL CELLS COUNTED % (AUTO) 100 %; WHITE BLOOD COUNT 7.6 10^3/uL (4.0-10.5)
[2017-10-04] MEDS ORDERED: NORMAL SALINE 1000 ML 1,000 ML IV ONE (05:49)
[2017-10-04] MEDS ORDERED: AZITHROMYCIN 250 MG TABLET PO ONE (06:38)
[2017-10-04] MEDS ORDERED: CEFTRIAXONE INJ 250 MG VIAL IV ONE (06:38)
[2017-10-04 07:04] LABS: CHLAM PCR NOT DETECTED (NOT DETECT); GON PCR NOT DETECTED (NOT DETECT)
[2017-10-04 07:29] VITALS: BP 91/56
== END 2017-10-04 07:29 | disposition home or self-care (01) ==
LOC: ER 04:24
DX: R30.0 Dysuria (principal); R10.2 Pelvic and perineal pain; R10.30 Lower abdominal pain, unspecified; F17.200 Nicotine dependence, unspecified, uncomplicated
CPT/HCPCS: 36415; 87210; 85025; 81025; 81001; 87491; 87591; J1885; J7030; J0696

== ENCOUNTER 2017-11-20 12:54 | Emergency (ER) | payer SELFPAY ==
[2017-11-20 13:06] VITALS: BP 96/69
[2017-11-20] MEDS ORDERED: MORPHINE SULFATE 10 MG/ML INJ IV ONE (13:24)
[2017-11-20] MEDS ORDERED: ONDANSETRON HCL INJ/PF 4 MG/2 ML SDV IV ONE (13:24)
[2017-11-20] MEDS ORDERED: NORMAL SALINE 1000 ML 1,000 ML IV ONE ×2 (13:26→13:28)
[2017-11-20] MEDS ORDERED: FENTANYL CITRATE INJ/PF 100 MCG/2 ML AMPUL IV ONE (13:29)
--- NOTE | 2017-11-20 13:29 | ER Document Report ---
ED Medical Screen (RME) - General Chief Complaint: Abdominal Pain Stated Complaint: ABDOMINAL PAIN Time Seen by Provider: 11/20/17 13:23 Mode of Arrival: Ambulatory Information source: Patient Notes: Patient complaining of sudden onset of right lower quadrant abdominal pain which started after eating last night. The pain is getting worse according to her. She denies any nausea, vomiting, diarrhea, fever or chills. She did not also says she has chest pain on review of system. I have greeted and performed a rapid initial assessment of this patient. A comprehensive ED assessment and evaluation of the patient, analysis of test results and completion of the medical decision making process will be conducted by additional ED providers. TRAVEL OUTSIDE OF THE [place] IN LAST 30 DAYS: No - Related Data Allergies/Adverse Reactions: No Known Allergies Allergy (Verified 12/11/16 12:31) Past Medical History - Social History Chew tobacco use (# tins/day): No Frequency of alcohol use: None Drug Abuse: None Renal/ Medical History: Denies: Hx Peritoneal Dialysis Musculoskeltal Medical History: Reports Hx Musculoskeletal Trauma Psychiatric Medical History: Reports: Hx Anxiety, Hx Depression Traumatic Medical History: Reports: Hx Fractures - arm Past Surgical History: Reports: Hx Oral Surgery - Immunizations Hx Diphtheria, Pertussis, Tetanus Vaccination: Yes Physical Exam - Vital signs Vitals: Temp Pulse Resp BP Pulse Ox 98.1 F 74 14 96/69 L 100 11/20/17 13:05 11/20/17 13:05 11/20/17 13:05 11/20/17 13:05 11/20/17 13:05 Course - Vital Signs Vital signs: Temp Pulse Resp BP Pulse Ox 98.1 F 74 14 96/69 L 100 11/20/17 13:05 11/20/17 13:05 11/20/17 13:05 11/20/17 13:05 11/20/17 13:05
== END 2017-11-20 15:01 | disposition left against medical advice (07) ==
LOC: ER 12:54
DX: R10.31 Right lower quadrant pain (principal); F41.9 Anxiety disorder, unspecified; F32.9 Major depressive disorder, single episode, unspecified
CPT/HCPCS: 99281

== ENCOUNTER 2017-11-26 08:40 | Emergency (ER) | payer SELFPAY ==
[2017-11-26] MEDS ORDERED: ONDANSETRON 4 MG TAB.RAPDIS PO ONE (09:55)
[2017-11-26 10:41] LABS: ABSOLUTE BASOPHILS # (AUTO) 0.1 10^3/uL (0.0-0.2); ABSOLUTE EOSINOPHILS # (AUTO) 0.1 10^3/uL (0.0-0.6); ABSOLUTE LYMPHOCYTES (AUTO) 2.6 10^3/uL (0.5-4.7); ABSOLUTE MONOCYTES (AUTO) 0.6 10^3/uL (0.1-1.4); ABSOLUTE NEUT (AUTO) 3.2 10^3/uL (1.7-8.2); BASOPHILS % (AUTO) 0.9 % (0-2); EOSINOPHILS % (AUTO) 1.9 % (0-6); HEMATOCRIT 42.1 % (36.0-47.0); HEMOGLOBIN 14.6 g/dL (12.0-15.5); LYMPHOCYTES % (AUTO) 38.9 % (13-45); MEAN CORPUSCULAR HEMOGLOBIN 30.6 pg (27.0-33.4); MEAN CORPUSCULAR HGB CONC 34.6 g/dL (32.0-36.0); MEAN CORPUSCULAR VOLUME 89 fl (80-97); MONOCYTES % (AUTO) 9.8 % (3-13); PLATELET COUNT 272 10^3/uL (150-450); RED BLOOD COUNT 4.75 10^6/uL (3.72-5.28); RED CELL DISTRIBUTION WIDTH 13.8 % (11.5-14.0); SEGMENTED NEUTROPHILS % (AUTO) 48.5 % (42-78); TOTAL CELLS COUNTED % (AUTO) 100 %; WHITE BLOOD COUNT 6.6 10^3/uL (4.0-10.5)
[2017-11-26 10:48] LABS: AMORPHOUS SEDIMENT,URINE 1+ /HPF; APPEARANCE,URINE TURBID; BILIRUBIN,URINE NEGATIVE (NEGATIVE); COLOR,URINE YELLOW; GLUCOSE, URINE NEGATIVE (NEGATIVE); KETONES,URINE NEGATIVE (NEGATIVE); LEUKOCYTE ESTERASE,URINE TRACE (NEGATIVE); NITRITE,URINE NEGATIVE (NEGATIVE); PROTEIN,URINE NEGATIVE (NEGATIVE); URINE SPECIFIC GRAVITY 1.019
[2017-11-26 10:50] LABS: BACTERIA (WET MOUNT) 3+ BACTERIA SEEN; EPITHELIALS (WET MOUNT) 3+ EPITHELIALS SEEN; RBCS (WET MOUNT) 4+ RBCS SEEN; T.VAGINALIS (WET MOUNT) NO TRICHOMONAS SEEN; WBCS (WET MOUNT) FEW WBCS SEEN; YEAST (WET MOUNT) NO YEAST SEEN
[2017-11-26 11:03] LABS: ALANINE AMINOTRANSFERASE 26 U/L (9-52); ALBUMIN 4.2 g/dL (3.5-5.0); ALKALINE PHOSPHATASE 73 U/L (38-126); ANION GAP 5 (5-19); ASPARTATE AMINO TRANSFERASE 23 U/L (14-36); BILIRUBIN,DIRECT 0.4 mg/dL (0.0-0.4); BILIRUBIN,TOTAL 0.6 mg/dL (0.2-1.3); BLOOD UREA NITROGEN 11 mg/dL (7-20); CALCIUM 9.6 mg/dL (8.4-10.2); CARBON DIOXIDE 33 mmol/L (22-30); CHLORIDE 103 mmol/L (98-107); GLUCOSE 82 mg/dL (75-110); LIPASE 49.6 U/L (23-300); SODIUM 141.3 mmol/L (137-145); TOTAL PROTEIN 7.4 g/dL (6.3-8.2)
[2017-11-26 11:15] LABS: URINE AMPHETAMINES SCREEN UNCONFIRMED POSITIVE; URINE BARBITURATES SCREEN NEGATIVE; URINE BENZODIAZEPINES SCREEN NEGATIVE; URINE COCAINE SCREEN NEGATIVE; URINE MARIJUANA (THC) SCREEN UNCONFIRMED POSITIVE; URINE METHADONE SCREEN NEGATIVE; URINE PHENCYCLIDINE SCREEN NEGATIVE
[2017-11-26] MEDS ORDERED: CEFTRIAXONE 1 GM/D5W RTU 1 GM/50 ML RTUPB IV ONE (11:59)
[2017-11-26] MEDS ORDERED: CEFTRIAXONE INJ 250 MG VIAL IV ONE (12:00)
[2017-11-26 12:18] LABS: CHLAM PCR NOT DETECTED (NOT DETECT); GON PCR DETECTED (NOT DETECT)
[2017-11-26] MEDS ORDERED: AZITHROMYCIN 250 MG TABLET PO ONE (13:05)
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
[2017-11-26 13:38] VITALS: BP 110/63
== END 2017-11-26 13:38 | disposition home or self-care (01) ==
LOC: ER 08:40
DX: A54.9 Gonococcal infection, unspecified (principal); F17.210 Nicotine dependence, cigarettes, uncomplicated
CPT/HCPCS: 99283; 96365; 36415; 87040; 87210; 83690; 85025; 81025; 80053; 81001; 80307; 87491; 87591; S0119; J0696

== ENCOUNTER 2017-12-16 01:55 | Emergency (ER) | payer SELFPAY ==
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
[2017-12-16 06:10] LABS: ABSOLUTE BASOPHILS # (AUTO) 0.1 10^3/uL (0.0-0.2); ABSOLUTE EOSINOPHILS # (AUTO) 0.1 10^3/uL (0.0-0.6); ABSOLUTE LYMPHOCYTES (AUTO) 2.2 10^3/uL (0.5-4.7); ABSOLUTE MONOCYTES (AUTO) 1.1 10^3/uL (0.1-1.4); ABSOLUTE NEUT (AUTO) 4.5 10^3/uL (1.7-8.2); BASOPHILS % (AUTO) 0.7 % (0-2); EOSINOPHILS % (AUTO) 1.8 % (0-6); HEMATOCRIT 38.8 % (36.0-47.0); HEMOGLOBIN 13.5 g/dL (12.0-15.5); LYMPHOCYTES % (AUTO) 27.5 % (13-45); MEAN CORPUSCULAR HEMOGLOBIN 30.4 pg (27.0-33.4); MEAN CORPUSCULAR HGB CONC 34.8 g/dL (32.0-36.0); MEAN CORPUSCULAR VOLUME 87 fl (80-97); MONOCYTES % (AUTO) 13.3 % (3-13); PLATELET COUNT 214 10^3/uL (150-450); RED BLOOD COUNT 4.44 10^6/uL (3.72-5.28); SEGMENTED NEUTROPHILS % (AUTO) 56.7 % (42-78); TOTAL CELLS COUNTED % (AUTO) 100 %
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
[2017-12-16 06:23] LABS: ALANINE AMINOTRANSFERASE 30 U/L (9-52); ALBUMIN 4.4 g/dL (3.5-5.0); ALKALINE PHOSPHATASE 82 U/L (38-126); ANION GAP 10 (5-19); ASPARTATE AMINO TRANSFERASE 30 U/L (14-36); BILIRUBIN,DIRECT 0.3 mg/dL (0.0-0.4); BILIRUBIN,TOTAL 1.5 mg/dL (0.2-1.3); BLOOD UREA NITROGEN 13 mg/dL (7-20); CALCIUM 9.5 mg/dL (8.4-10.2); CARBON DIOXIDE 23 mmol/L (22-30); CHLORIDE 105 mmol/L (98-107); GLUCOSE 91 mg/dL (75-110); POTASSIUM 3.4 mmol/L (3.6-5.0); SODIUM 137.8 mmol/L (137-145); TOTAL PROTEIN 7.5 g/dL (6.3-8.2)
[2017-12-16 06:47] LABS: URINE BARBITURATES SCREEN NEGATIVE; URINE BENZODIAZEPINES SCREEN NEGATIVE; URINE COCAINE SCREEN NEGATIVE; URINE MARIJUANA (THC) SCREEN UNCONFIRMED POSITIVE; URINE METHADONE SCREEN NEGATIVE; URINE PHENCYCLIDINE SCREEN NEGATIVE
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
[2017-12-16 08:44] VITALS: BP 105/62
== END 2017-12-16 08:45 | disposition home or self-care (01) ==
LOC: ER 01:55
DX: S00.83XA Contusion of other part of head, initial encounter (principal); S40.022A Contusion of left upper arm, initial encounter; S40.021A Contusion of right upper arm, initial encounter; S80.12XA Contusion of left lower leg, initial encounter; S80.11XA Contusion of right lower leg, initial encounter; R51 Headache; M54.2 Cervicalgia; R55 Syncope and collapse; Y04.2XXA Assault by strike against or bumped into by another person, initial encounter; F17.200 Nicotine dependence, unspecified, uncomplicated; F14.10 Cocaine abuse, uncomplicated; F11.10 Opioid abuse, uncomplicated; R40.0 Somnolence
CPT/HCPCS: 36415; 70450; 72125; 80053; 80307; 81025; 85025; 99284

== ENCOUNTER 2018-11-29 18:41 | Emergency (ER) | payer SELFPAY ==
[2018-11-29 18:58] VITALS: BP 108/59
[2018-11-29] MEDS ORDERED: PENICILLIN V POTASSIUM 500 MG TABLET PO ONE (19:13)
--- NOTE | 2018-11-29 19:18 | ER Document Report ---
HPI - HPI Patient complains to provider of: dental pain Time Seen by Provider: 11/29/18 19:12 Onset: Other - couple days Quality of pain: Achy Pain Level: 1 Context: Patient presents emergency department with complaints of left upper dental pain for the last couple days. Denies fever vomiting diarrhea. Patient has widespread dental decay. Associated Symptoms: None Exacerbated by: Denies Relieved by: Denies Similar symptoms previously: Yes Recently seen / treated by doctor: No - REPRODUCTIVE Reproductive: DENIES: : Past Medical History - General Information source: Patient Last Menstrual Period: Few days ago - Social History Smoking Status: Current Every Day Smoker Chew tobacco use (# tins/day): No Frequency of alcohol use: None Drug Abuse: None Family History: CAD, Hyperlipidemia, Hypertension, Malignancy. denies: Arthritis, COPD, CVA, DM, Thyroid Disfunction Patient has suicidal ideation: No Patient has homicidal ideation: No Renal/ Medical History: Denies: Hx Peritoneal Dialysis Musculoskeletal Medical History: Reports Hx Musculoskeletal Trauma Psychiatric Medical History: Reports: Hx Anxiety, Hx Depression Traumatic Medical History: Reports: Hx Fractures - arm Past Surgical History: Reports: Hx Oral Surgery - Immunizations Hx Diphtheria, Pertussis, Tetanus Vaccination: Yes Vertical Provider Document - CONSTITUTIONAL Agree With Documented VS: Yes Exam Limitations: No Limitations General Appearance: WD/WN, No Apparent Distress - INFECTION CONTROL TRAVEL OUTSIDE OF THE [place] IN LAST 30 DAYS: No - HEENT HEENT: Atraumatic, Normocephalic. negative: Pharyngeal Erythema Mouth Diagram: 1 - Patient reports pain. No obvious infection no erythema no swelling no pustule opens her mouth wide clear voice no trismus no ludwigs - NECK Neck: Normal Inspection, Supple. negative: Lymphadenopathy-Left, Lympha denopathy-Right - RESPIRATORY Respiratory: Breath Sounds Normal, No Respiratory Distress - CARDIOVASCULAR Cardiovascular: Regular Rate - MUSCULOSKELETAL/EXTREMETIES Musculoskeletal/Extremeties: EMILY DORADO - NEURO Level of Consciousness: Awake, Alert, Appropriate - DERM Integumentary: Warm, Dry Course - Re-evaluation Re-evalutation: 11/29/18 19:18 38-year-old female presents with complaints of left upper dental pain with widespread dental decay. She was instructed on Pen-Vee K. She was also instructed on the importance of follow-up with the dentist. She was given written information on a dentist to follow-up with. She verbalized understanding to all instructions. Dictation of this chart was performed using voice recognition software; therefore, there may be some unintended grammatical errors. - Vital Signs Vital signs: Temp Pulse Resp BP Pulse Ox 98.0 F 82 18 108/59 L 96 11/29/18 18:55 11/29/18 18:55 11/29/18 18:55 11/29/18 18:55 11/29/18 18:55 Discharge - Discharge Clinical Impression: Pain, dental Condition: Stable Disposition: HOME, SELF-CARE Instructions: Penicillin V K ([facility]), Toothache ([facility]), [facility] Additional Instructions: *You have been evaluated for dental pain *Take medications as prescribed *Follow up with dentist as soon as it is possible Take ibuprofen or Tylenol as indicated for pain *Return to ED for worsening condition, changes, needs Prescriptions: Penicillin V Potassium [Penicillin Vk 500 mg Tablet] 500 mg PO BID #20 tablet
== END 2018-11-29 19:17 | disposition home or self-care (01) ==
LOC: ER 18:41
DX: K08.89 Other specified disorders of teeth and supporting structures (principal); F17.200 Nicotine dependence, unspecified, uncomplicated
CPT/HCPCS: 99282